=== PATIENT | female | born 1970 | race Caucasian/White ===

== ENCOUNTER → 2017-04-12 | Outpatient (CLI) | payer OTHER ==
[2017-04-12 16:53] LABS: ALBUMIN SERUM 4.3 g/dL (3.5-5.0); BILIRUBIN, DIRECT 0.1 mg/dL (0.0-0.2); BILIRUBIN,INDIRECT 0.4 mg/dL (0.0-0.9); BILIRUBIN,TOTAL 0.5 mg/dL (0.2-2.0); PROTEIN TOTAL SERUM 7.2 g/dL (6.0-8.3)
== END | disposition home or self-care (01) ==
LOC: CLAB 16:00
PROVIDERS: Podiatrist Foot & Ankle Surgery
DX: Z51.81 Encounter for therapeutic drug level monitoring (principal); Z79.899 Other long term (current) drug therapy
CPT/HCPCS: 36415; 80076

== ENCOUNTER 2017-05-08 07:07 | Emergency (ER) | payer OTHER ==
[~2017-05-08] VITALS: Ht 167.6 cm; Wt 87.1 kg
== END 2017-05-08 09:50 | disposition home or self-care (01) ==
LOC: CED 07:07
DX: G89.29 Other chronic pain (principal); M54.5 Low back pain; F17.200 Nicotine dependence, unspecified, uncomplicated; Z90.49 Acquired absence of other specified parts of digestive tract; Z88.8 Allergy status to other drugs, medicaments and biological substances
CPT/HCPCS: 96372; 99283; J1100; J2270